=== PATIENT | male | born 1980 | race Caucasian/White ===

== ENCOUNTER → 2019-01-05 | Outpatient (CLI) | payer BC, MEDICARE ==
--- NOTE | 2019-01-06 07:18 | Diagnostic Imaging Report ---
EXAMINATION: MRI of the lumbar spine without contrast HISTORY: Recent fall, lower extremity weakness and radiculopathy, right-sided low back pain radiating to the right lower extremity with numbness, history of cerebral palsy and scoliosis. COMPARISON: None. TECHNIQUE: Sagittal T1, T2, STIR; axial T2 and proton density. FINDINGS: It is assumed that there are 5 lumbar vertebrae. Curvature/Alignment: Normal lordosis. Subtle right-sided curvature. Vertebrae: No evidence of recent fracture, infection, or neoplasm. Conus: Normal, terminating at L1-L2 Cauda equina: Unremarkable. Lower thoracic: Unremarkable. Paraspinal soft tissues: Unremarkable. Degenerative changes: L1-L2: Minimal infiltrate in the left is without significant L2-L3: Unremarkable. L3-L4: Minimal decreased disc height and T2 signal intensity, symmetric disc bulge and mild facet arthrosis. No significant stenosis. L4-L5: Mild bilateral facet arthrosis without stenosis. L5-S1: Mild bilateral facet arthrosis without stenosis. IMPRESSION: 1. No acute post traumatic lumbar spine abnormalities. 2. No significant degenerative changes, spinal canal or foraminal stenosis. Signed by: Dr. Leyda Orlando M.D. on 01/06/2019 7:15 AM
== END ==
LOC: MRI 16:13
PROVIDERS: ATTEND Family Medicine
DX: M54.16 Radiculopathy, lumbar region (principal)
CPT/HCPCS: 72148

== ENCOUNTER → 2019-02-04 | Outpatient (CLI) | payer BC, MEDICARE ==
--- NOTE | 2019-02-04 21:15 | Diagnostic Imaging Report ---
Examination: MRI SPINE CERVICAL WITHOUT CONTRAST History: Cerebral palsy. Fall. Worsening gait stability. Immobility. Hyperreflexia. Comparison studies: None Technique: Sagittal T1, T2 and IR, axial T2 and axial gradient echo intravenous contrast: None Findings: Alignment: Normal lordosis. No scoliosis. Cervicomedullary junction: No abnormalities. Patent foramen magnum. Soft tissues: No T2 hyperintense inflammatory changes. Spinal cord: Normal in size with increase in signal of the cord from C3 through C4. Vertebrae: No fractures, infection or neoplasm. Degenerative changes: C1-C2: No abnormalities. C2-C3: No abnormalities. C3-C4: Severe canal and moderate right and severe left neural foraminal narrowing due to diffuse disc osteophyte complex, moderate bilateral uncovertebral arthropathy and mild ligamentum flavum thickening. C4-C5: Mild bilateral neural foraminal narrowing due to uncovertebral and facet arthropathy. No degenerative disc or canal stenosis. C5-C6: Asymmetric to right disc bulge results in mild right neural foraminal narrowing. No left foraminal or canal stenosis. C6-C7: No abnormalities. C7-T1: No abnormalities. IMPRESSION: 1. Increased signal in the cord from C3 through C4, concerning for cord compression given degenerative canal stenosis at the same level. Alternatively, the signal in the cord could represent another inflammatory process such as multiple sclerosis. Contrast-enhanced cervical spine MRI may be obtained for further evaluation. 2. Severe canal stenosis and moderate right and severe left neural foraminal narrowing at C3-C4. Signed by: Dr. Lakeshia Serna M.D. on 02/04/2019 9:12 PM
--- NOTE | 2019-02-05 15:11 | Diagnostic Imaging Report ---
EXAMINATION: MRI of the brain without contrast. HISTORY: Gait abnormality. Loosing mobility, cerebral palsy, hyperreflexia, positive Herbert's. COMPARISON: None available TECHNIQUE: Sagittal T2; axial DWI, T2, FLAIR, T1-IR, T2 gradient echo; coronal FLAIR. IMAGE QUALITY: Motion artifact limits evaluation of most of the sequences.. FINDINGS: Parenchyma: 1. Moderate confluent periventricular, cardenas radiata and centrum semiovale white matter T2 and FLAIR hyperintensities mostly in the bilateral parietal and occipital lobes. Otherwise no areas of abnormal signal intensity in the brain parenchyma. 2. No mass, hemorrhage, acute or chronic infarcts. Skull: Unremarkable. Vessels: Expected flow voids present in the major arteries and dural sinuses. Extra-axial spaces: No abnormal signal intensity or mass effect. Brain volume: Mild generalized brain volume loss, with particular prominent white matter loss in the occipitoparietal lobes, more than what is expected for patient's age and which may be related to remote perhaps anoxic ischemic insult. Ventricles: No hydrocephalus or displacement. Foramen magnum: Unremarkable. Sella: Unremarkable. Paranasal / mastoid sinuses: No significant inflammatory disease. IMPRESSION: 1. No acute infarcts, mass or hydrocephalus. 2. Moderate confluent white matter hyperintensities as described. 3. Brain volume loss as detailed above. Signed by: Dr. Leyda Orlando M.D. on 02/05/2019 3:08 PM
== END ==
LOC: MRI 15:48
PROVIDERS: ATTEND Psychiatry & Neurology Neurology
DX: G80.9 Cerebral palsy, unspecified (principal); R29.2 Abnormal reflex; Z91.81 History of falling
CPT/HCPCS: 70551; 72141

== ENCOUNTER → 2025-07-21 | Day surgery (SDC) | payer MEDICARE ==
[~2025-07-21] MED LIST: BENICAR20 MG PO; FENTANYL CITRATE/PF 100MCG/2 ML INJ ONE; FISH OIL 1,0001 EAC7 PO; FLOMAX0.4 MG PO; GLUCAGON FOR INJ 1 MG VIAL ONE; HYOSCYAMINE SULFATE 0.5 MG/ML INJ ONE; KETAMINE HCL INJ 50 MG/ML 10 ML VIAL ONE; LIDOCAINE HCL 2% LOCAL INJ 5 ML SDV VIAL INJ ONE; MONTELUKAST SOD10 MG PO; NAPROXEN500 MG PO; ONDANSETRON HCL INJ 2MG/ML 2ML 2 MG/ML VIAL ONE; OXYBUTYNIN CHLOR5 MG PO; POTASSIUM PO; PREDNISONE20 MG PO; PROPOFOL IV EMULSION 50 ML IV ONE; TYLENOL325 MG PO; VITAMIN D31250 MCG PO
[2025-07-21] MEDS: LACTATED RINGER'S 1,000 ML ONE (07:13)
[2025-07-21 08:54] VITALS: TEMP 97.6
[2025-07-21 09:10] VITALS: BP 124/85; PULSE 98; RESP 15; O2SAT 97
== END | disposition home or self-care (01) ==
LOC: OR 06:12
PROVIDERS: ATTEND Internal Medicine Gastroenterology
DX: Z12.11 Encounter for screening for malignant neoplasm of colon (principal); D12.2 Benign neoplasm of ascending colon; K62.1 Rectal polyp; K62.89 Other specified diseases of anus and rectum; K64.8 Other hemorrhoids; I10 Essential (primary) hypertension; N40.0 Benign prostatic hyperplasia without lower urinary tract symptoms; G80.9 Cerebral palsy, unspecified; Z01.810 Encounter for preprocedural cardiovascular examination; Z79.1 Long term (current) use of non-steroidal anti-inflammatories (NSAID); Z79.899 Other long term (current) drug therapy; Z68.28 Body mass index [BMI] 28.0-28.9, adult
CPT/HCPCS: 45385; 93005; J1610; J1980; J2003; J2405; J2704; J3010; J7121; 45378